=== PATIENT | female | born 1930 | race Two or more races ===

== ENCOUNTER 2017-02-16 14:43 | Inpatient (IN) | payer MEDICARE, MEDICAID ==
[~2017-02-16] VITALS: Ht 149.9 cm; Wt 71.7 kg
[~2017-02-16 14:43] MED LIST: CHOL200026 PO; FERR325C PO; GLIP10TA PO; HYDR25TA4 PO; LISI-659 PO; MAGN400T26 PO; SIMV10TA6 PO; SITA100T PO; TRAM-351 PO; [UNRECOGNIZED DRUG - CODE] PO
--- NOTE | 2017-02-16 14:48 | NUR ---
AAOX1, BIB PA FROM [facility] C/O CHEST CONGESTION X 1 MONTH, WORSE LAST 2 DAYS, SPO2=92% ON RA, PLACED ON NC AT 2L/MIN NOW SPO2=99%. SKIN IS WARM AND DRY. ASSISTED TO HOSPITAL GOWN, PLACED ON MONITOR. AWAITING MD FOR EVAL.
[2017-02-16] MEDS ORDERED: IV NS 0.9% 1,000 ML BAG IV ONE ×2 (15:30)
[2017-02-16] MEDS ORDERED: AZITHROMYCIN 500 MG in IV D5W 250 ML IV ONE (15:30)
[2017-02-16] MEDS ORDERED: CEFTRIAXONE 1GM BAG (ER ONLY) 1 GM/50 ML PIGGYBACK IV ONE (15:30)
[2017-02-16] MEDS ORDERED: METF500T4 PO (15:38)
[2017-02-16] MEDS ORDERED: ACET-868 PO (15:38)
[2017-02-16] MEDS ORDERED: GLIP5TAB13 PO (15:38)
[2017-02-16] MEDS ORDERED: PANT40TA4 PO (15:38)
[2017-02-16] MEDS ORDERED: GUAI5SYR PO (15:38)
[2017-02-16] MEDS ORDERED: LOPE2CAP40 PO (15:38)
[2017-02-16] MEDS ORDERED: DIPH25CA6 PO (15:38)
[2017-02-16] MEDS ORDERED: SENN8.6T6 PO (15:38)
[2017-02-16] MEDS ORDERED: INSU100V26 SQ (15:38)
[2017-02-16] MEDS ORDERED: MULT-24 PO (15:38)
[2017-02-16] MEDS ORDERED: ONDA4TAB5 PO (15:38)
[2017-02-16] MEDS ORDERED: AMLO10TA2 PO (15:38)
[2017-02-16] MEDS ORDERED: ACET200V5 NEB (15:38)
[2017-02-16] MEDS ORDERED: ASPI-991 PO (15:38)
[2017-02-16] MEDS ORDERED: METO25TA20 PO (15:38)
[2017-02-16] MEDS ORDERED: METO-295 PO (15:38)
[2017-02-16] MEDS ORDERED: PIOG45TA PO (15:38)
[2017-02-16 15:46] LABS: BASOPHILS % (AUTO) 0.2 % (0.0-2.0); EOSINOPHILS # (AUTO) 0.1 /CMM (0.0-0.7); EOSINOPHILS % (AUTO) 0.6 % (0.0-6.0); HEMATOCRIT 36 % (33-45); LYMPHOCYTES # (AUTO) 1.7 /CMM (0.8-4.8); LYMPHOCYTES % (AUTO) 12.5 % (20.0-44.0); MEAN CORPUSCULAR HEMOGLOBIN 31 PG (26.0-33.0); MEAN CORPUSCULAR HGB CONC 34 g/dl (31.0-36.0); MEAN CORPUSCULAR VOLUME 90 fL (82-100); MONOCYTES # (AUTO) 0.7 /CMM (0.1-1.30); MONOCYTES % (AUTO) 5.3 % (2.0-12.0); NEUTROPHILS % (AUTO) 81.4 % (43.0-81.0); PLATELET COUNT (AUTO) 238 /CMM (150-450); RDW COEFFICIENT OF VARIATION 13.7 (11.5-15.0); RED BLOOD CELL COUNT(AUTO) 3.95 MIL/uL (4.0-5.2); WHITE BLOOD COUNT (AUTO) 13.5 K/uL (4.3-11.0)
--- NOTE | 2017-02-16 15:47 | NUR ---
CALLED NURSING SUP. FOR TELE BED
[2017-02-16 15:52] LABS: CALCIUM, SERUM 8.9 mg/dL (8.5-10.1); CARBON DIOXIDE 27 mmol/L (21-32); CHLORIDE 105 mmol/L (98-107); CREATININE 1.1 mg/dL (0.6-1.3); GLUCOSE 250 mg/dL (74-106); POTASSIUM 4.5 mmol/L (3.5-5.1); SODIUM SERUM 140 mmol/L (136-145); UREA NITROGEN, BLOOD 30 mg/dL (7-18)
[2017-02-16 16:00] LABS: TROPONIN I < 0.017 ng/mL (0.00-0.056)
[2017-02-16 16:01] LABS: INR 1.03 (0.87-1.13); PROTHROMBIN TIME 10.7 SECS (9.5-12.7)
--- NOTE | 2017-02-16 16:06 | NUR ---
PT GOING TO TELE 309-1 FOR PNEUMONIA
[2017-02-16 16:17] LABS: LACTIC ACID 1.6 mmol/L (0.4-2.0)
--- NOTE | 2017-02-16 16:30 | NUR ---
PATIENT IS ALLERGIC TO PCN, DR STEELE IS AWARE, ORDERED TO GIVE ROCEPHIN.
[2017-02-16] MEDS ORDERED: IV SET PRIMARY 1 EA INFUS.SET MC ONE (16:52)
[2017-02-16] MEDS ORDERED: CEFTRIAXONE 1GM BAG (ER ONLY) 50 ML IV ONE (16:52)
[2017-02-16] MEDS ORDERED: IV SET PRIMARY PUMP SET 1 EA INFUS.SET MC ONE ×2 (16:52→21:00)
[2017-02-16] MEDS ORDERED: IV NS 0.9% 2,000 ML ONE (16:52)
--- NOTE | 2017-02-16 17:35 | NUR ---
Patient is resting comfortably in bed with eyes closed. Easily aroused. VSS
--- NOTE | 2017-02-16 18:29 | NUR ---
REPORT GIVEN TO MARIIA GONZALEZ TELE 309 FOR ERNESTINE.
--- NOTE | 2017-02-16 18:39 | NUR ---
TELEVISION TECHNICIANSAMPLE SELECTOR NOTE PATIENT IS ALERT AND ORIENTED x1. INDIAN SPEAKING ONLY. FAMILY AT BEDSIDE. ON TELEMETRY WITH CARDIAC MONITORING. BEDREST ABLE TO USE BEDPAN. LEFT AC IV INTACT AND PATENT. RECEIVED REPORT FROM AMALIA SANDHU RN. WILL ENDORSE TO RUM PROCESSING OPERATOR NURSE FOR ADMISSION.
--- NOTE | 2017-02-16 19:02 | NUR ---
CAROLINE PAGED, SUPERVISOR PREP
--- NOTE | 2017-02-16 19:15 | NUR ---
RECEIVED PATIENT IN BED, RESPONSIVE TO VERBAL AND TACTILE STIMULI, ANAM O2 CANNULA AT 2LPM. ENCOURAGED DEEP BREATHING EXERCISE. FAMILY AT BEDSIDE.
--- NOTE | 2017-02-16 19:20 | NUR ---
[facility] REPAGED
--- NOTE | 2017-02-16 19:40 | NUR ---
TELE/RN RECEIVE PATIENT FROM [facility]. PATIENT IS AWAKE, FLAT AFFECT, NON VERBAL, APPEAR COMFORTABLE, NO SIGNS OF DISTRESS NOTED, MADE COMFORTABLE IN BED. UNABLE TO OBTAIN INFORMATION FROM THE PATIENT DUE TO HER MENTAL CONDITION. WILL MONITOR.
--- NOTE | 2017-02-16 19:40 | NUR ---
TRANSPORTED TO [facility] VIA ALS PROTOCOL. NO INCIDENT NOTED. DORCAS CHIANG AT BEDSIDE.
[2017-02-16 20:00] VITALS: BP 145/76
[2017-02-16] MEDS ORDERED: HYDROCODONE/APAP 5/325MG 1 EACH TABLET PO PRN (20:00)
[2017-02-16] MEDS ORDERED: LEVOFLOXACIN 500 MG /D5W 100ML 500 MG in PREMIX 1 EA IV SCH (20:00)
[2017-02-16] MEDS ORDERED: Z GUARD REMEDY 2 OZ OINT TP PRN (20:00)
[2017-02-16] MEDS ORDERED: diphenhydrAMINE HCL 25 MG CAPSULE PO PRN (20:00)
[2017-02-16] MEDS ORDERED: ACETAMINOPHEN PO PRN (20:00)
[2017-02-16] MEDS ORDERED: ZOLPIDEM TARTRATE 5 MG TABLET PO PRN (20:00)
[2017-02-16] MEDS ORDERED: TRAMADOL HCL PO PRN (20:00)
[2017-02-16] MEDS ORDERED: MAG HYDROX/AL HYDROX/SIMETH 30 ML UDC PO PRN (20:00)
[2017-02-16] MEDS ORDERED: INSULIN REGULAR, HUMAN 100 UNIT/ML 3 ML VIAL SQ PRN ×2 (20:00→22:00)
[2017-02-16] MEDS ORDERED: MAGNESIUM HYDROXIDE 30 ML UDC PO PRN (20:00)
[2017-02-16] MEDS ORDERED: [UNRECOGNIZED DRUG - OTHER] PO PRN (20:00)
[2017-02-16] MEDS ORDERED: ACETAMINOPHEN 325 MG TABLET PO PRN (20:00)
[2017-02-16] MEDS ORDERED: LOPERAMIDE HCL (2 MG CAP) 2 MG CAPSULE PO PRN (20:00)
[2017-02-16] MEDS: CEFEPIME 1 GM in IV D5W 50 ML IV SCH (21:00)
[2017-02-16] MEDS ORDERED: LEVOFLOXACIN 500 MG /D5W 100ML 100 ML IV ONE (21:46)
[2017-02-16] MEDS ORDERED: CEFEPIME 1 GM VIAL ONE (21:51)
[2017-02-16] MEDS ORDERED: INSULIN REGULAR, HUMAN 100 UNIT/ML 10 ML VIAL ONE (21:52)
[2017-02-16] MEDS: SIMVASTATIN 10 MG TABLET PO SCH (22:00)
[2017-02-16] MEDS: SENNOSIDES 8.6 MG TABLET PO SCH (22:00)
[2017-02-16] MEDS ORDERED: BLOOD SUGAR DIAGNOSTIC 1 EACH STRIP IN SCH (22:00)
[2017-02-16] MEDS ORDERED: DEXTROSE 50%-WATER 50 ML DISP.SYRIN IV PRN ×2 (22:00→23:00)
[2017-02-16] MEDS ORDERED: IV D5W 50 ML IV ONE (22:01)
[2017-02-16] MEDS ORDERED: SECONDARY IV SET 1 EA INFUS.SET MC ONE (22:02)
[2017-02-16] MEDS ORDERED: GUAIFENESIN/D-METHORPHAN HB 5 ML UDC ONE (22:26)
[2017-02-16] MEDS ORDERED: SENNOSIDES 8.6 MG TABLET ONE (22:26)
[2017-02-16] MEDS ORDERED: SIMVASTATIN 10 MG TABLET ONE (22:29)
[2017-02-16] MEDS: GUAIFENESIN/D-METHORPHAN HB 5 ML UDC PO PRN (22:32)
[2017-02-16] MEDS ORDERED: *INSULIN REGULAR(HUMULIN R)HUM 100 UNIT/ML VIAL SQ PRN (23:00)
[2017-02-16] MEDS ORDERED: ALBUTEROL FS 2.5 MG/0.5 ML VIAL.NEB NEB PRN (23:00)
[2017-02-16] MEDS ORDERED: ALBUTEROL FS 2.5 MG/0.5 ML VIAL.NEB ONE (23:41)
[2017-02-17] MEDS ORDERED: ENOXAPARIN SODIUM 40 MG/0.4 ML DISP.SYRIN SQ ONE (02:39)
[2017-02-17] MEDS: ENOXAPARIN SODIUM 40 MG/0.4 ML DISP.SYRIN SQ SCH ×2 (02:44→22:17)
[2017-02-17] MEDS ORDERED: CEFEPIME 1 GM VIAL ONE (03:42)
[2017-02-17] MEDS ORDERED: IV D5W 50 ML IV ONE (04:32)
[2017-02-17] MEDS: CEFEPIME 1 GM in IV D5W 50 ML IV SCH (04:49)
[2017-02-17] MEDS: BLOOD SUGAR DIAGNOSTIC 1 EACH STRIP VI SCH ×4 (07:15→22:37)
[2017-02-17] MEDS ORDERED: IV NS 0.9% 250 ML IV ONE (07:38)
[2017-02-17 08:00] VITALS: BP 135/77
--- NOTE | 2017-02-17 08:00 | NUR ---
MS RN NOTE PT. AWAKE, AND CONFUSE. REFUSED TO EAT BREAKFAST. CHECK BLOOD SUGAR. IT WAS 101. WILL HOLD GLUCOPHAGE AND GLUCOTROL. NS @ TKO IVF. MONITOR CLOSELY.
[2017-02-17 08:44] LABS: BASOPHILS % (AUTO) 0.4 % (0.0-2.0); EOSINOPHILS # (AUTO) 0.2 /CMM (0.0-0.7); EOSINOPHILS % (AUTO) 1.7 % (0.0-6.0); HEMATOCRIT 32 % (33-45); HEMOGLOBIN 10.5 g/dL (11.5-14.8); LYMPHOCYTES # (AUTO) 2.4 /CMM (0.8-4.8); LYMPHOCYTES % (AUTO) 19.1 % (20.0-44.0); MEAN CORPUSCULAR HEMOGLOBIN 29 PG (26.0-33.0); MEAN CORPUSCULAR HGB CONC 33 g/dl (31.0-36.0); MEAN CORPUSCULAR VOLUME 90 fL (82-100); MONOCYTES % (AUTO) 7.8 % (2.0-12.0); NEUTROPHILS # (AUTO) 8.9 /CMM (1.8-8.9); PLATELET COUNT (AUTO) 233 /CMM (150-450); RDW COEFFICIENT OF VARIATION 14.5 (11.5-15.0); RED BLOOD CELL COUNT(AUTO) 3.58 MIL/uL (4.0-5.2); WHITE BLOOD COUNT (AUTO) 12.5 K/uL (4.3-11.0)
[2017-02-17 08:58] LABS: CREATININE 0.8 mg/dL (0.6-1.3); POTASSIUM 3.6 mmol/L (3.5-5.1)
[2017-02-17] MEDS ORDERED: glipiZIDE 5 MG TABLET PO SCH (09:00)
[2017-02-17] MEDS: AMLODIPINE BESYLATE 10 MG TABLET PO SCH (09:00)
[2017-02-17] MEDS: MULTIVITAMINS,THERAPEUTIC 1 UDTAB TABLET PO SCH (09:00)
[2017-02-17] MEDS ORDERED: METFORMIN 500 MG TABLET PO SCH (09:00)
[2017-02-17] MEDS: METOCLOPRAMIDE HCL 10 MG TABLET PO SCH ×3 (09:00→16:48)
[2017-02-17] MEDS ORDERED: Medication Not On Formulary EA (Sitagliptin Phosphate (Januvia) 100 MG) PO SCH (09:00)
[2017-02-17] MEDS: ASPIRIN EC 81 MG TABLET.DR PO SCH (09:00)
[2017-02-17] MEDS: METOPROLOL TARTRATE 50 MG TABLET PO SCH ×2 (09:00→22:14)
--- NOTE | 2017-02-17 09:00 | NUR ---
PT. REFUSED TO TAKE BRY.
[2017-02-17] MEDS: PANTOPRAZOLE 40 MG TABLET.DR PO SCH (09:05)
[2017-02-17] MEDS ORDERED: PIOGLITAZONE HCL 15 MG TABLET PO SCH (09:30)
[2017-02-17] MEDS ORDERED: ACETYLCYSTEINE 10% SOLN 400 MG/4 ML VIAL NEB PRN (09:30)
[2017-02-17] MEDS ORDERED: ONDANSETRON 4 MG TAB.RAPDIS PO PRN (09:30)
[2017-02-17] MEDS ORDERED: LISINOPRIL (20MG) 20 MG TABLET PO SCH (09:30)
[2017-02-17] MEDS ORDERED: SITAGLIPTIN PHOSPHATE 50 MG TABLET PO SCH (09:30)
[2017-02-17 09:32] LABS: MAGNESIUM 1.2 mg/dL (1.8-2.4)
[2017-02-17] MEDS ORDERED: FEE PK DOSING 1 MIN EA MC ONE (09:41)
[2017-02-17] MEDS ORDERED: SECONDARY IV SET 1 EA INFUS.SET MC ONE ×2 (10:46→11:59)
--- NOTE | 2017-02-17 11:00 | NUR ---
DR. ARCHULETA AT NURSING STATION. NOTIFIED MG LEVEL (1.2). ALSO REMINDED THAT PT REFUSED TO EAT AND TAKE MEDS.
[2017-02-17] MEDS: VANCOMYCIN 0.75 GM in IV D5W 250 ML IV SCH (11:01)
[2017-02-17] MEDS: Magnesium 1GM/D5W 100ML PREMIX 100 ML IV SCH ×4 (12:02→15:56)
[2017-02-17] MEDS ORDERED: hydrALAZINE HCL 25 MG TABLET PO PRN (12:30)
[2017-02-17] MEDS: LISINOPRIL (20MG) 20 MG TABLET PO SCH (12:42)
[2017-02-17] MEDS ORDERED: TRAMADOL HCL 50 MG TABLET PO PRN (13:00)
[2017-02-17] MEDS: Potassium Chloride 10 MEQ in IV D5/0.45 NACL 1,000 ML IV PRN (13:13)
[2017-02-17 16:00] VITALS: BP 141/72
--- NOTE | 2017-02-17 17:00 | NUR ---
URINARY CATHETERIZATION DONE TO GET UA SAMPLE. CALLED LAB.
[2017-02-17] MEDS: INSULIN REGULAR, HUMAN 100 UNIT/ML 3 ML VIAL SQ PRN (17:19)
[2017-02-17] MEDS: GUAIFENESIN/D-METHORPHAN HB 5 ML UDC PO PRN (18:17)
--- NOTE | 2017-02-17 18:30 | NUR ---
CLOSING SHIFT PT. AWAKE, AND CONFUSED. COMPLAINTS OF COUGHING, TOOK A COUGH MEDS. NO SOB ON O2@ 2L VIA NC. REPOSITION FREQUENTLY. FAMILY AT THE BEDSIDE. D5 1/2 NS & K @ 75ML/HR IVF. CALL LIGHT WITHIN REACH. SIDE RAILS UP. MONITOR CLOSELY.
[2017-02-17 19:03] LABS: APPEARANCE,URINE SL CLOUDY (CLEAR); BILIRUBIN,URINE NEGATIVE (NEGATIVE); BLOOD, URINE TRACE Ery/uL (NEGATIVE); COLOR,URINE YELLOW (YELLOW); KETONES,URINE TRACE (NEGATIVE); LEUKOCYTE ESTERASE ,URINE 2+ (NEGATIVE); NITRITE, URINE NEGATIVE (NEGATIVE); PROTEIN,URINE NEGATIVE (NEGATIVE); UGLUCOSE TRACE mg/dL (NEGATIVE); UROBILINOGEN,URINE 0.2 EU/dL (0.2)
--- NOTE | 2017-02-17 19:30 | NUR ---
MSRN EASILY AWAKENED, NON VERBAL OF THIS TIME, TOTAL CARE, PRESENT IVF INFUSING WELL VIA LEFT AC. REPOSTIONED, NO SOB, 100% ON RA. TO CONTINUE.
[2017-02-17 19:35] LABS: ADD URINE CULTURE YES; BACTERIA,URINE 3+ /HPF (None Seen); WBC,URINE 21-50 /HPF (0-3)
[2017-02-17 20:00] VITALS: BP 111/53
[2017-02-17] MEDS: SENNOSIDES 8.6 MG TABLET PO SCH (21:49)
[2017-02-17] MEDS: SIMVASTATIN 10 MG TABLET PO SCH (21:49)
[2017-02-17 22:00] VITALS: BP 111/53
--- NOTE | 2017-02-17 22:00 | NUR ---
MSRN BS WAS 180, REFUSED TO TAKE ANYTHING BY MOUTH, SPITS MEDS. ABLE TO SAY SOME WORDS IN MACANESE CLEARLY. VERBAL LIMITED. HS CARE DONE REPOSITIONED.
[2017-02-17] MEDS: LEVOFLOXACIN 250 MG /D5W 50 ML 250 MG in PREMIX 1 EA IV SCH (22:16)
--- NOTE | 2017-02-18 03:18 | NUR ---
MSRN SLEEPING APPEARS COMFORTABLE. NO NEEDS FOR NOW. CONTINUED MONITORING.
--- NOTE | 2017-02-18 06:47 | NUR ---
MSRN BS 154. PRESENT IVF INFUSING WELL. KEPT COMFORTABLE, REPOSITIONED.
[2017-02-18] MEDS: BLOOD SUGAR DIAGNOSTIC 1 EACH STRIP VI SCH ×4 (07:03→21:38)
[2017-02-18 07:26] LABS: CREATININE 0.7 mg/dL (0.6-1.3); POTASSIUM 3.4 mmol/L (3.5-5.1)
[2017-02-18] MEDS: PANTOPRAZOLE 40 MG TABLET.DR PO SCH (07:30)
--- NOTE | 2017-02-18 07:33 | NUR ---
RN OPEN NOTES RECEIVED REPORT FROM CONFIGURATION MANAGEMENT SPECIALIST NURSE. PATIENT IS IN BED. ALERT AND ORIENTED X0. CONFUSED. PATIENT WAS NOT ABLE TO VERBALIZE HER NAME. PER CONFIGURATION MANAGEMENT SPECIALIST, PATIENT REFUSED ALL HER MEDS. IV SITE IS POTENT AND INTACT. PER CONFIGURATION MANAGEMENT SPECIALIST SKIN IS INTACT, WILL REASSESS PATIENT SACRAL AREA DUE TO INCONTINENCE. WILL CONTINUE TO ASSESS AND MONITOR PATIENT DURING MY SHIFT.
[2017-02-18 08:00] VITALS: BP 127/61
[2017-02-18] MEDS ORDERED: SECONDARY IV SET 1 EA INFUS.SET MC ONE (08:40)
[2017-02-18] MEDS: CEFEPIME 1 GM in IV D5W 50 ML IV SCH (08:45)
[2017-02-18] MEDS: AMLODIPINE BESYLATE 10 MG TABLET PO SCH (08:52)
[2017-02-18] MEDS: LISINOPRIL (20MG) 20 MG TABLET PO SCH (08:52)
[2017-02-18] MEDS: METOCLOPRAMIDE HCL 10 MG TABLET PO SCH ×3 (08:52→17:46)
[2017-02-18] MEDS: ASPIRIN EC 81 MG TABLET.DR PO SCH (08:52)
[2017-02-18] MEDS: METOPROLOL TARTRATE 50 MG TABLET PO SCH ×2 (08:52→21:00)
[2017-02-18] MEDS: MULTIVITAMINS,THERAPEUTIC 1 UDTAB TABLET PO SCH (08:53)
--- NOTE | 2017-02-18 09:00 | NUR ---
RN NOTES 0900 MEDS PATIENT REFUSED ALL HER 0900 MEDS. PATIENT REFUSED BREAKFAST.
[2017-02-18] MEDS: VANCOMYCIN 0.75 GM in IV D5W 250 ML IV SCH (10:34)
[2017-02-18] MEDS ORDERED: IV SET PRIMARY PUMP SET 1 EA INFUS.SET MC ONE (10:59)
[2017-02-18] MEDS ORDERED: POTASSIUM CHLORIDE 20 MEQ TAB.PRT.SR PO SCH (11:00)
--- NOTE | 2017-02-18 11:30 | NUR ---
RN NOTES K SUPP. PATIENT REFUSE ANYTHING BY MOUTH. TRIED APPLE SAUCE BUT PATIENT WOULDN'T OPEN HER MOUTH.
--- NOTE | 2017-02-18 12:14 | NUR ---
RN NOTES BLOOD SUGAR BLOOD SUGAR 194. PATIENT DIDN'T EAT BREAKFAST. PATIENT REFUSED LUNCH. HELD INSULIN FOR NOW
[2017-02-18] MEDS: Potassium Chloride 10 MEQ in IV D5/0.45 NACL 1,000 ML IV PRN (12:24)
[2017-02-18] MEDS ORDERED: IPRATROPIUM NEB FS 0.5 MG/2.5 ML AMPUL.NEB NEB PRN (13:30)
[2017-02-18] MEDS ORDERED: ALBUTEROL FS 2.5 MG/0.5 ML VIAL.NEB NEB PRN (13:30)
[2017-02-18 16:00] VITALS: BP 150/82
--- NOTE | 2017-02-18 17:30 | NUR ---
RN NOTES PATIENT WAS ABLE TO TAKE HER 1700 MEDS DUE TO AT HER BED SIDE.
[2017-02-18] MEDS: LACTOBACILLUS RHAMNOSUS GG 1 EACH CAP.SPRINK PO SCH (17:46)
[2017-02-18] MEDS: INSULIN REGULAR, HUMAN 100 UNIT/ML 3 ML VIAL SQ PRN (17:49)
--- NOTE | 2017-02-18 18:43 | NUR ---
RN CLOSING NOTES PATIENT IS IN BED. ALERT AND ORIENTED X1. PARAGUAYAN SPEAKER ONLY. IS AT BED SIDE. IV SITE IN INTACT AND POTENT, IV FLUID IS CURRENTLY RUNNING AT 75 ML/HR. PATIENT REFUSED HER BREAKFAST AND LUNCH, WELL HER PO MEDS. PATIENT ONLY TOOK HER 1700 MEDS WITH THE HELP OF HER . BED IS IN LOW POSITION, LOCKED AND 2 SIDE RAILS ARE UP FOR SAFETY. WILL ENDORSE TO PSYCH NURSE NURSE FOR CONTINUUM OF CARE
--- NOTE | 2017-02-18 19:20 | NUR ---
RN NOTES RECEIVED PT AWAKE, HOB ELEVATED, WITH O2 INHALATION VIA NC AT 2PLM AND TOLERATED WELL. PT NOTED WITH CHEST CONGESTION, RALES AND RONCHI HEARD UPON AUSCULTATION. PT ALERT AND ORIENTED X1, MOANING MOANING WHILE TALKING TO THE AT BEDSIDE. IV ACCESS ON LEFT AC PATENT AND INTACT WITH ONGOING IV FLUID INFUSING WELL. KEPT COMFORTABLE AND ATTENDED, WILL TURN AND REPOSITION PT, WILL SUCTION SECRETIONS NEEDED. WILL CONTINUE TO MONITOR PT.
[2017-02-18 20:21] VITALS: BP 134/73
--- NOTE | 2017-02-18 21:00 | NUR ---
RN NOTES LOPRESSOR 100 MGS TAB NOT GIVEN BECAUSE OF BP 108/55 AND HEART RATE OF 92. WILL CONTINUE TO MONITOR PT.
[2017-02-18] MEDS: SENNOSIDES 8.6 MG TABLET PO SCH (21:49)
[2017-02-18] MEDS: SIMVASTATIN 10 MG TABLET PO SCH (21:49)
--- NOTE | 2017-02-18 21:50 | NUR ---
RN NOTES BLOOD SUGAR CHECKED 143 MG/DL, 2 UNITS INSULIN GIVEN SQ PER SLIDING SCALE. WILL CONTINUE TO MONITOR PT.
[2017-02-18 22:00] VITALS: BP 108/55
[2017-02-18] MEDS: LEVOFLOXACIN 250 MG /D5W 50 ML 250 MG in PREMIX 1 EA IV SCH (23:33)
[2017-02-18] MEDS: ENOXAPARIN SODIUM 40 MG/0.4 ML DISP.SYRIN SQ SCH (23:35)
[2017-02-19] MEDS: Potassium Chloride 10 MEQ in IV D5/0.45 NACL 1,000 ML IV PRN (03:34)
[2017-02-19] MEDS: BLOOD SUGAR DIAGNOSTIC 1 EACH STRIP VI SCH ×2 (06:43→12:50)
[2017-02-19] MEDS: INSULIN REGULAR, HUMAN 100 UNIT/ML 3 ML VIAL SQ PRN ×2 (06:45→12:53)
[2017-02-19 06:48] LABS: BASOPHILS % (AUTO) 0.3 % (0.0-2.0); EOSINOPHILS # (AUTO) 0.2 /CMM (0.0-0.7); EOSINOPHILS % (AUTO) 2.3 % (0.0-6.0); HEMATOCRIT 31 % (33-45); HEMOGLOBIN 10.3 g/dL (11.5-14.8); LYMPHOCYTES # (AUTO) 2.2 /CMM (0.8-4.8); LYMPHOCYTES % (AUTO) 25.3 % (20.0-44.0); MEAN CORPUSCULAR HEMOGLOBIN 29 PG (26.0-33.0); MEAN CORPUSCULAR HGB CONC 33 g/dl (31.0-36.0); MEAN CORPUSCULAR VOLUME 89 fL (82-100); MONOCYTES # (AUTO) 0.8 /CMM (0.1-1.30); MONOCYTES % (AUTO) 9.3 % (2.0-12.0); NEUTROPHILS # (AUTO) 5.4 /CMM (1.8-8.9); NEUTROPHILS % (AUTO) 62.8 % (43.0-81.0); PLATELET COUNT (AUTO) 260 /CMM (150-450); RDW COEFFICIENT OF VARIATION 14.2 (11.5-15.0); RED BLOOD CELL COUNT(AUTO) 3.52 MIL/uL (4.0-5.2); WHITE BLOOD COUNT (AUTO) 8.5 K/uL (4.3-11.0)
[2017-02-19 07:02] LABS: CREATININE 0.7 mg/dL (0.6-1.3); POTASSIUM 3.4 mmol/L (3.5-5.1)
--- NOTE | 2017-02-19 07:25 | NUR ---
RN NOTES PT AWAKE, KEPT HOB ELEVATED, NO SOB, NO SIGNS OF DISTRESS AND DISCOMFORT NOTED., TOLERATING 02 INHALATION AT 2LPM VIA NC. VITAL SIGNS STABLE, AFEBRILE. NO EPISODE OF NAUSEA AND VOMITING. PT DENIES ANY PAIN AND DISCOMFORT. SUCTION SECRETIONS NEEDED, TURNED AND REPOSITION Q2 HOURS SCHEDULED. KEPT PT CLEAN AND DRY. ALL DUE MEDS GIVEN. ENDORSED TO MORNING RN FOR CONTINUITY OF CARE.
[2017-02-19] MEDS: PANTOPRAZOLE 40 MG TABLET.DR PO SCH ×2 (07:30→09:48)
[2017-02-19 08:00] VITALS: BP 138/67
[2017-02-19 09:00] VITALS: BP 138/67
[2017-02-19] MEDS: AMLODIPINE BESYLATE 10 MG TABLET PO SCH ×2 (09:00→09:50)
[2017-02-19] MEDS: METOPROLOL TARTRATE 50 MG TABLET PO SCH ×2 (09:00→09:49)
[2017-02-19] MEDS: METOCLOPRAMIDE HCL 10 MG TABLET PO SCH ×3 (09:00→12:50)
[2017-02-19] MEDS: LISINOPRIL (20MG) 20 MG TABLET PO SCH ×2 (09:00→09:50)
[2017-02-19] MEDS: ASPIRIN EC 81 MG TABLET.DR PO SCH ×2 (09:00→09:48)
[2017-02-19] MEDS: LACTOBACILLUS RHAMNOSUS GG 1 EACH CAP.SPRINK PO SCH ×2 (09:00→09:48)
[2017-02-19] MEDS: CEFEPIME 1 GM in IV D5W 50 ML IV SCH (09:48)
[2017-02-19] MEDS: MULTIVITAMINS,THERAPEUTIC 1 UDTAB TABLET PO SCH (09:50)
[2017-02-19] MEDS: GUAIFENESIN/D-METHORPHAN HB 5 ML UDC PO PRN (09:54)
[2017-02-19] MEDS ORDERED: ALBUTEROL FS 2.5 MG/3 ML VIAL.NEB NEB PRN (10:30)
[2017-02-19] MEDS: VANCOMYCIN 0.75 GM in IV D5W 250 ML IV SCH (11:44)
[2017-02-19] MEDS ORDERED: LEVO500T15 PO (13:00)
--- NOTE | 2017-02-19 16:00 | NUR ---
RN NOTES PT DISCHARGED TO [facility], REPORT GIVEN TO MARIIA GLASS, EXIT CARE DONE, DISCHARGE INSTRUCTIONS PROVIDED TO SON AND PAPERS TO AMBULANCE, ID BAND REMOVED IV REMOVED, SKIN INTACT, NO PICTURES WERE TAKEN, ALL NEEDS MET AND MEDS GIVEN ORDERED.
--- NOTE | 2017-02-19 16:00 | NUR ---
RN NOTES PT LEFT TO [facility] IN STABLE CONDITION, AOX1 GABONESE SPEAKING, ON NC 3.0 L/MIN
[2017-02-19] MEDS ORDERED: LEVOFLOXACIN (250MG) 250 MG TABLET PO SCH (23:00)
== END 2017-02-19 15:49 | DRG 177 ==
LOC: ER 14:46 → TELE 17:05 → MED 20:57
PROVIDERS: ADMIT Internal Medicine; ATTEND Internal Medicine
DX: J15.6 Pneumonia due to other Gram-negative bacteria (principal); N17.0 Acute kidney failure with tubular necrosis; R53.2 Functional quadriplegia; E46 Unspecified protein-calorie malnutrition; N10 Acute pyelonephritis; E11.9 Type 2 diabetes mellitus without complications; E78.5 Hyperlipidemia, unspecified; F03.90 Unspecified dementia, unspecified severity, without behavioral disturbance, psychotic disturbance, mood disturbance, and anxiety; I10 Essential (primary) hypertension; J20.9 Acute bronchitis, unspecified; D63.8 Anemia in other chronic diseases classified elsewhere; Z79.84 Long term (current) use of oral hypoglycemic drugs; Z86.73 Personal history of transient ischemic attack (TIA), and cerebral infarction without residual deficits; D72.829 Elevated white blood cell count, unspecified; I70.90 Unspecified atherosclerosis; Z68.31 Body mass index [BMI] 31.0-31.9, adult
CPT/HCPCS: 36415; 71010-TC; 80048-TC; 80061-TC; 81000-TC; 82962-TC; 83605-TC; 83735-TC; 84100-TC; 84484-TC; 85025-TC; 85730-TC; 87040-TC; 87081-TC; 87086-TC; 87400; 94799-TC; A4216; A4606; J0456; J0692; J0696; J1650; J1815; J1956; J3370; J3475; J3480; J3490; J7030; J7050; J7060; J8597; Z7610

== ENCOUNTER 2017-08-22 23:18 | Inpatient (IN) | payer MEDICARE, MEDICAID ==
[~2017-08-22] VITALS: Ht 165.1 cm; Wt 77.1 kg
[~2017-08-22 23:18] MED LIST changes: +ACET-868 PO; +ACET200V5 NEB; +AMLO10TA2 PO; +ASPI-991 PO; -CHOL200026 PO; +DIPH25CA6 PO; -FERR325C PO; -GLIP10TA PO; +GUAI5SYR PO; -HYDR25TA4 PO; +INSU100V26 SQ; +LEVO500T15 PO; +LOPE2CAP40 PO; -MAGN400T26 PO; +METF500T4 PO; +METO-295 PO; +METO25TA20 PO; +MULT-24 PO; +ONDA4TAB5 PO; +PANT40TA4 PO; +PIOG45TA PO; +SENN8.6T6 PO; -[UNRECOGNIZED DRUG - CODE] PO
[2017-08-22] MEDS ORDERED: IV NS 0.9% 500 ML BAG IV ONE (23:30)
--- NOTE | 2017-08-22 23:30 | NUR ---
TO BED 3 BIB PARAMEDICS C/O POOR PO INTAKE X6 MONTHS PER EMT TRANSPORT REPORT. PT NONVERBAL, NO ACUTE DISTRESS NOTED, RESP EVEN AND UNLABORED. PLACE PT ON CARDIAC MONITORING, CONTINUOUS POX. ER MD AT BEDSIDE TO EVAL PT WITH ORDERS RECEIVED. WILL CARRY OUT ORDERS.
--- NOTE | 2017-08-22 23:40 | NUR ---
STARTED SL 18G TO R HAND, BLOOD DRAWN AND SENT TO LAB.
[2017-08-23] VITALS (7 sets, daily range): BP systolic 108–146; BP diastolic 55–91
[2017-08-23 00:06] LABS: BASOPHILS # (AUTO) 0.1 /CMM (0.0-0.2); BASOPHILS % (AUTO) 0.3 % (0.0-2.0); EOSINOPHILS # (AUTO) 0.1 /CMM (0.0-0.7); EOSINOPHILS % (AUTO) 0.4 % (0.0-6.0); HEMATOCRIT 38 % (33-45); HEMOGLOBIN 12.2 g/dL (11.5-14.8); LYMPHOCYTES # (AUTO) 3.9 /CMM (0.8-4.8); LYMPHOCYTES % (AUTO) 18.4 % (20.0-44.0); MEAN CORPUSCULAR HEMOGLOBIN 28 PG (26.0-33.0); MEAN CORPUSCULAR HGB CONC 32 g/dl (31.0-36.0); MEAN CORPUSCULAR VOLUME 87 fL (82-100); MONOCYTES % (AUTO) 4.9 % (2.0-12.0); NEUTROPHILS # (AUTO) 15.9 /CMM (1.8-8.9); PLATELET COUNT (AUTO) 258 /CMM (150-450); RDW COEFFICIENT OF VARIATION 16.9 (11.5-15.0); RED BLOOD CELL COUNT(AUTO) 4.35 MIL/uL (4.0-5.2); WHITE BLOOD COUNT (AUTO) 20.9 K/uL (4.3-11.0)
[2017-08-23 00:07] LABS: CALCIUM, SERUM 9.4 mg/dL (8.5-10.1); CARBON DIOXIDE 21 mmol/L (21-32); CHLORIDE 116 mmol/L (98-107); CREATININE 2.1 mg/dL (0.6-1.3); GLUCOSE 224 mg/dL (74-106); POTASSIUM 4.4 mmol/L (3.5-5.1); SODIUM SERUM 151 mmol/L (136-145); UREA NITROGEN, BLOOD 74 mg/dL (7-18)
[2017-08-23 00:13] LABS: ALANINE AMINOTRANSFERASE 13 U/L (12-78); ALBUMIN 2.7 g/dL (3.4-5.0); ASPARTATE AMINOTRANSFERASE 18 U/L (15-37); BILIRUBIN,DIRECT 0.1 mg/dL (0.0-0.2); BILIRUBIN,TOTAL 0.4 mg/dL (0.2-1.0); TOTAL PROTEIN, SERUM 7.8 g/dL (6.4-8.2)
[2017-08-23 00:16] LABS: TROPONIN I 0.024 ng/mL (0.00-0.056)
[2017-08-23 00:18] LABS: INR 1.06 (0.87-1.13); PROTHROMBIN TIME 11.4 SECS (9.5-12.7)
[2017-08-23 00:23] LABS: ALKALINE PHOSPHATASE 84 U/L (46-116)
--- NOTE | 2017-08-23 00:27 | NUR ---
F/C 16FR INSERTED, NOTED YELLOW MILKY COLOR URINE.URINE SAMPLE COLLECTED AND SENT TO LAB.
[2017-08-23 00:30] LABS: APPEARANCE,URINE TURBID (CLEAR)
[2017-08-23 00:31] LABS: COLOR,URINE YELLOW (YELLOW)
[2017-08-23 00:33] LABS: PROTEIN,URINE 3+ mg/dl (NEGATIVE); UGLUCOSE NEGATIVE (NEGATIVE)
[2017-08-23 00:34] LABS: BILIRUBIN,URINE TRACE (NEGATIVE); BLOOD, URINE 3+ Ery/uL (NEGATIVE)
[2017-08-23 00:35] LABS: KETONES,URINE 1+ (NEGATIVE)
[2017-08-23 00:36] LABS: LEUKOCYTE ESTERASE ,URINE 3+ (NEGATIVE); NITRITE, URINE POSITIVE (NEGATIVE); UROBILINOGEN,URINE 0.2 EU/dL (0.2)
[2017-08-23 00:46] LABS: BACTERIA,URINE 3+ /HPF (None Seen); SQUAMOUS EPITHELIAL CELL,UR Moderate /HPF (None Seen); WBC,URINE 81-100 /HPF (0-3)
[2017-08-23 01:04] LABS: BAND % (MANUAL) 1 % (0.0-5.0); EOSINOPHILS % (MANUAL) 1 % (0-4); LYMPHOCYTES % (MANUAL) 20 % (16-48); MONOCYTES % (MANUAL) 2 % (0-11.0); NEUTROPHILS % (MANUAL) 76 (42-76)
[2017-08-23] MEDS ORDERED: GLUC1KIT2 IM (01:27)
[2017-08-23] MEDS ORDERED: METO100T3 PO (01:27)
[2017-08-23] MEDS ORDERED: METF10002 PO (01:27)
[2017-08-23] MEDS ORDERED: HYDR-4077 PO (01:27)
[2017-08-23] MEDS ORDERED: TRAM50TA92 PO (01:27)
[2017-08-23] MEDS ORDERED: INSU100V26 IJ (01:27)
[2017-08-23] MEDS ORDERED: ATOR10TA PO (01:27)
[2017-08-23] MEDS ORDERED: IPRA3AMP IH (01:27)
[2017-08-23] MEDS ORDERED: ASCO500T10 PO (01:27)
[2017-08-23] MEDS ORDERED: DEXT37.54 PO (01:27)
[2017-08-23] MEDS ORDERED: INSU100V10 SQ (01:27)
[2017-08-23] MEDS ORDERED: SITA100T PO (01:27)
[2017-08-23] MEDS ORDERED: PIOG45TA PO (01:27)
[2017-08-23] MEDS ORDERED: CIPROFLOXACIN IV RTU 400 MG in PREMIX 1 EA IV SCH (01:30)
--- NOTE | 2017-08-23 01:36 | NUR ---
ER SPOKE TO DR. FOX REGARDING PT ADMISSION. WILL CALL FOR REPORT.
--- NOTE | 2017-08-23 01:42 | NUR ---
F/C ENDORSED TO MARKETING PROJECT MANAGERMARIIA LONDONO FOR PLACEMENT VERIFICATION. REPORT GIVEN.
[2017-08-23] MEDS ORDERED: CIPROFLOXACIN IV RTU 200 ML IV ONE (01:44)
[2017-08-23] MEDS ORDERED: MEROPENEM 500 MG in IV NS 0.9% 50 ML IV SCH (02:00)
[2017-08-23] MEDS ORDERED: ACETAMINOPHEN 650 MG/SUPP.RECT RC PRN (02:00)
[2017-08-23] MEDS ORDERED: ONDANSETRON HCL/PF 4 MG/2 ML VIAL IVP PRN (02:00)
[2017-08-23] MEDS ORDERED: MORPHINE SULFATE INJ 2 MG/ML DISP.SYRIN IV PRN (02:00)
--- NOTE | 2017-08-23 02:00 | NUR ---
RN ADMITTING NOTES Pt ARRIVED TO FLOOR VIA GURNEY. ON TELE. Pt IS AWAKE. NON-VERBAL. IV ACCESS ON R HAND #18G. ROBLERO CATHETER IN PLACE, DRAINING VERY LITTLE. ON DIAPER. NO S/S OF ACUTE DISTRESS OR SEVERE SOB NOTED. SAFETY MEASURES IN PLACE. BED LOW, LOCKED, HOB ELEVATED, SIDE RAILS UP, CALL LIGHT AND BEDSIDE TABLE WITHIN REACH. WILL CONTINUE TO MONITOR Pt THROUGHOUT THE NIGHT FOR SAFETY.
[2017-08-23] MEDS ORDERED: MEROPENEM 500 MG VIAL IV ONE (05:04)
[2017-08-23] MEDS: IV D5/0.45 NACL 1,000 ML IV PRN ×2 (05:08→23:44)
--- NOTE | 2017-08-23 06:55 | NUR ---
RN CLOSING NOTES NO SIGNIFICANT CHANGES IN Pt's CONDITION. ALL NEEDS MET AND ATTENDED TO. SAFETY MEASURES IN PLACE. BED LOW, LOCKED, HOB ELEVATED, SIDE RAILS UP, CALL LIGHT WITHIN REACH. WILL ENDORSE TO DAYSHIFT RN FOR Pt's ERNESTINE.
--- NOTE | 2017-08-23 07:30 | NUR ---
TRAVEL OT AM NOTES PT IN BED, AWAKE. NON-VERBAL. FLAT AFFECT, ON 2L O2 NC, NAD NO SOB, RESPIRATION UNLABORED, TELEMETRY READS SR HR 89. NO SIGNS OF PAIN OR GRIMACING, IV ACCESS ON R HAND #18G WITH D5 1/2 NS AT 70 ML/HR. INFUSING WELL, SITE CLEAR. ROBLEOR CATHETER IN PLACE, DRAINING VERY LITTLE. SAFETY MEASURES IN PLACE. BED LOW, LOCKED, HOB ELEVATED, SIDE RAILS UP, CALL LIGHT AND BEDSIDE TABLE WITHIN REACH. WILL TURN AND REPOSITIO Q 2 HOURS. WILL CONTINUE TO MONITOR.
[2017-08-23 08:27] LABS: ALANINE AMINOTRANSFERASE 13 U/L (12-78); ALBUMIN 2.5 g/dL (3.4-5.0); ALKALINE PHOSPHATASE 81 U/L (46-116); ASPARTATE AMINOTRANSFERASE 18 U/L (15-37); BASOPHILS % (AUTO) 0.2 % (0.0-2.0); BILIRUBIN,TOTAL 0.3 mg/dL (0.2-1.0); CALCIUM, SERUM 8.9 mg/dL (8.5-10.1); CARBON DIOXIDE 24 mmol/L (21-32); CHLORIDE 115 mmol/L (98-107); CREATININE 1.7 mg/dL (0.6-1.3); EOSINOPHILS # (AUTO) 0.1 /CMM (0.0-0.7); EOSINOPHILS % (AUTO) 0.4 % (0.0-6.0); GLUCOSE 347 mg/dL (74-106); HEMATOCRIT 36 % (33-45); HEMOGLOBIN 11.4 g/dL (11.5-14.8); LYMPHOCYTES # (AUTO) 3.5 /CMM (0.8-4.8); LYMPHOCYTES % (AUTO) 17.4 % (20.0-44.0); MAGNESIUM 1.6 mg/dL (1.8-2.4); MEAN CORPUSCULAR HEMOGLOBIN 28 PG (26.0-33.0); MEAN CORPUSCULAR HGB CONC 32 g/dl (31.0-36.0); MEAN CORPUSCULAR VOLUME 88 fL (82-100); MONOCYTES % (AUTO) 5.2 % (2.0-12.0); NEUTROPHILS # (AUTO) 15.4 /CMM (1.8-8.9); NEUTROPHILS % (AUTO) 76.8 % (43.0-81.0); PHOSPHORUS 3.1 mg/dL (2.5-4.9); PLATELET COUNT (AUTO) 271 /CMM (150-450); POTASSIUM 3.9 mmol/L (3.5-5.1); RED BLOOD CELL COUNT(AUTO) 4.08 MIL/uL (4.0-5.2); SODIUM SERUM 150 mmol/L (136-145); TOTAL PROTEIN, SERUM 7.1 g/dL (6.4-8.2); UREA NITROGEN, BLOOD 73 mg/dL (7-18)
[2017-08-23 08:54] LABS: BAND % (MANUAL) 2 % (0.0-5.0); LYMPHOCYTES % (MANUAL) 16 % (16-48); MONOCYTES % (MANUAL) 8 % (0-11.0); NEUTROPHILS % (MANUAL) 74 (42-76)
--- NOTE | 2017-08-23 08:57 | NUR ---
MS RN NOTES PER DR. HALL TO DC TELEMETRY
[2017-08-23] MEDS: FAMOTIDINE/PF INJ 20 MG/2 ML VIAL IV SCH ×2 (09:06→21:29)
--- NOTE | 2017-08-23 09:30 | NUR ---
MS RN NOTES ADMINISTERED DUE MEDS. SEEN BY DR. ARTIS. FOR SWALLOW EVAL.
[2017-08-23] MEDS ORDERED: VANCOMYCIN 1 GM in IV D5W 250 ML IV SCH (10:00)
[2017-08-23] MEDS ORDERED: FEE PK DOSING 1 MIN EA MC ONE (10:35)
--- NOTE | 2017-08-23 11:15 | NUR ---
MS RN NOTES STARTED VANCO IV 1X DOSE ONLY. SPEECH THERAPIST AT [facility] FOR SWALLOW EVAL - FAILED.
[2017-08-23] MEDS ORDERED: Medication Not On Formulary EA (Ipratropium/Albuterol Sulfate (Duoneb 2.5-0.5 Mg/3 Ml So IH SCH (11:30)
[2017-08-23] MEDS ORDERED: LOPERAMIDE HCL (2 MG CAP) 2 MG CAPSULE PO PRN (11:30)
[2017-08-23] MEDS ORDERED: ACETYLCYSTEINE 20% SOLN 800 MG/4 ML VIAL NEB PRN (11:30)
[2017-08-23] MEDS ORDERED: ACETAMINOPHEN 325 MG TABLET PO PRN (11:30)
[2017-08-23] MEDS ORDERED: TRAMADOL HCL 50 MG TABLET PO PRN (11:30)
[2017-08-23] MEDS ORDERED: GLUTOSE 15 G GEL..GM. PO SCH (11:30)
[2017-08-23] MEDS ORDERED: diphenhydrAMINE HCL 25 MG CAPSULE PO PRN (11:30)
[2017-08-23] MEDS ORDERED: DEXTROSE 50%-WATER 50 ML DISP.SYRIN IV PRN (11:30)
[2017-08-23] MEDS ORDERED: GUAIFENESIN/D-METHORPHAN HB 5 ML UDC PO PRN (11:30)
[2017-08-23] MEDS: BLOOD SUGAR DIAGNOSTIC 1 EACH STRIP VI SCH ×3 (11:48→21:46)
--- NOTE | 2017-08-23 11:51 | NUR ---
MS RN NOTES ACCUCHECK. BS 363 MG/DL. 12 UNITS HUM R GIVEN PER SS.
[2017-08-23] MEDS: INSULIN REGULAR, HUMAN 100 UNIT/ML 3 ML VIAL SQ PRN ×2 (12:00→16:58)
[2017-08-23] MEDS: Magnesium 1GM/D5W 100ML PREMIX 100 ML IV SCH ×2 (12:26→13:28)
--- NOTE | 2017-08-23 12:26 | NUR ---
MS RN NOTES MAGNESIUM IV BAG #1.
--- NOTE | 2017-08-23 13:05 | NUR ---
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 ALL SKIN PROTECTION MEASURES IN PLACE. DISCUSSED WITH NURSING STAFF. FIRST STEP MATTRESS ORDERED. ES SCORE CURRENTLY 9. WILL SEE PRN. Royal Brown IN AGREEMENT WITH PLAN OF CARE. Addendum: 08/23/17 at 1312 by ALINE MANZO WNDNU Amended: Links added.
[2017-08-23] MEDS ORDERED: AMIN30LI4 PO (13:13)
[2017-08-23] MEDS ORDERED: ASPI81TA2 PO (13:13)
[2017-08-23] MEDS: NYSTATIN CREAM 15 GM TUBE TP SCH ×2 (13:28→16:50)
--- NOTE | 2017-08-23 13:28 | NUR ---
MS RN NOTES MAGNESIUM IV BAG #2 STARTED.
[2017-08-23] MEDS ORDERED: IPRATROPIUM NEB FS 0.5 MG/2.5 ML AMPUL.NEB NEB PRN (13:30)
[2017-08-23] MEDS ORDERED: ALBUTEROL FS 2.5 MG/3 ML VIAL.NEB NEB PRN (13:30)
[2017-08-23] MEDS: hydrALAZINE HCL 50 MG TABLET PO SCH (16:45)
[2017-08-23] MEDS: MEROPENEM 500 MG in IV NS 0.9% 50 ML IV SCH (16:45)
[2017-08-23] MEDS: METOPROLOL TARTRATE 25 MG TABLET PO SCH (16:47)
--- NOTE | 2017-08-23 16:55 | NUR ---
MS RN NOTES STARTED MERREM IV. ACCUCHECK. BS 297 MG/DL. 9 UNITS HUM R GIVEN PER SLIDING SCALE.
[2017-08-23] MEDS: ATORVASTATIN 10 MG TABLET PO SCH (17:36)
--- NOTE | 2017-08-23 18:21 | NUR ---
MS RN AM NOTES PT IN BED, RESTING, AWAKE. NON-VERBAL. FLAT AFFECT, DANISH SPEAKING. ON 2L O2 NC, NAD NO SOB, RESPIRATION UNLABORED, NO SIGNS OF PAIN OR GRIMACING, IV ACCESS ON R HAND #18G WITH D5 1/2 NS AT 70 ML/HR. INFUSING WELL, SITE CLEAR. ROBLERO CATHETER IN PLACE, WITH 400 ML OUTPUT. SAFETY MEASURES IN PLACE. BED LOW, LOCKED, HOB ELEVATED, SIDE RAILS UP, CALL LIGHT AND BEDSIDE TABLE WITHIN REACH.TURNED AND REPOSITIONED Q 2 HOURS. ALL NEEDS MET. NO OTHER SIGNIFICANT CHANGE IN CONDITION. PATIENT SEEN BY WOUND CARE NURSE EARLIER, PHOTO OF 5TH LEFT TOE DTI TAKEN AND PLACED INSIDE CHART. OFFLOAD. PT SEEN BY DR. ORTIZ, FOR EGD WITH PEG ON SATURDAY. NPO PMN SATURDAY. OBTAIN CONSENT PLS. WILL ENDORSE TO NEXT SHIFT FOR ERNESTINE.
--- NOTE | 2017-08-23 19:30 | NUR ---
RN NOTES RECEIVED PATIENT IN BED WITH EYES CLOSED. EASILY AROUSABLE. NON-VERBAL. NO ACUTE DISTRESS NOTED. NO SIGNS OF PAIN NOTED. NO SYMPTOMS OF HYPER/HYPOGLYCEMIA. IV SITE PATENT, INTACT; IVF INFUSING ORDERED. ON LOW BED WITH BILATERAL UPPER SIDE RAILS UP. WILL CONTINUE TO MONITOR.
[2017-08-23] MEDS: *INSULIN REGULAR(HUMULIN R)HUM 100 UNIT/ML VIAL SQ PRN (21:48)
[2017-08-23] MEDS: SENNOSIDES 8.6 MG TABLET PO SCH (22:00)
[2017-08-23] MEDS ORDERED: SIMVASTATIN 10 MG TABLET PO SCH (22:00)
[2017-08-24] MEDS: MEROPENEM 500 MG in IV NS 0.9% 50 ML IV SCH ×2 (05:08→17:52)
--- NOTE | 2017-08-24 06:15 | NUR ---
RN NOTES PATIENT ASLEEP, EASILY AROUSABLE. RESPIRATIONS EVEN. NO SIGNS OF PAIN NOTED. DUE MEDS GIVEN WITH NO ASE NOTED. NEEDS ATTENDED. SAFETY PRECAUTIONS AND COMFORT MEASURES IN PLACE. WILL GIVE REPORT TO DAY SHIFT FOR CONTINUITY OF CARE.
[2017-08-24] MEDS: BLOOD SUGAR DIAGNOSTIC 1 EACH STRIP VI SCH ×4 (06:28→21:22)
[2017-08-24] MEDS ORDERED: PANTOPRAZOLE 40 MG TABLET.DR PO SCH (07:30)
[2017-08-24 07:56] LABS: CALCIUM, SERUM 8.8 mg/dL (8.5-10.1); CHLORIDE 116 mmol/L (98-107); CREATININE 1.1 mg/dL (0.6-1.3); GLUCOSE 141 mg/dL (74-106); MAGNESIUM 2.1 mg/dL (1.8-2.4); POTASSIUM 3.7 mmol/L (3.5-5.1); SODIUM SERUM 149 mmol/L (136-145); UREA NITROGEN, BLOOD 43 mg/dL (7-18)
[2017-08-24 08:00] VITALS: BP 144/69
--- NOTE | 2017-08-24 08:01 | NUR ---
ANGLE ROLL OPERATOR OPENING NOTES PT RELAXING IN BED. NO APPARENT DISTRESS NOTED. PT IS ALERT AND ORIENTED X1. PT IS NPO DID NOT PASS SWALLOW EVAL TEST. PT IS ON 2L NC. WILL CONTINUE TO MONITOR. ULTRASOUND OF THE KIDNEYS SCHEDULED FOR TODAY.
[2017-08-24 08:02] LABS: CARBON DIOXIDE 21 mmol/L (21-32)
[2017-08-24] MEDS: hydrALAZINE HCL 50 MG TABLET PO SCH ×2 (08:29→17:00)
[2017-08-24] MEDS: ASPIRIN EC 81 MG TABLET.DR PO SCH (08:30)
[2017-08-24] MEDS: AMLODIPINE BESYLATE 10 MG TABLET PO SCH (08:30)
[2017-08-24] MEDS: METOPROLOL TARTRATE 25 MG TABLET PO SCH ×2 (08:30→17:00)
[2017-08-24] MEDS: ASCORBIC ACID 500 MG TABLET PO SCH (08:31)
[2017-08-24] MEDS: MULTIVITAMINS,THERAGRAN 1 UDTAB TABLET PO SCH (08:31)
[2017-08-24] MEDS: FAMOTIDINE/PF INJ 20 MG/2 ML VIAL IV SCH ×2 (09:49→21:15)
[2017-08-24] MEDS: NYSTATIN CREAM 15 GM TUBE TP SCH ×2 (09:50→17:54)
[2017-08-24] MEDS: VANCOMYCIN 0.75 GM in IV D5W 250 ML IV SCH ×2 (09:55→21:15)
[2017-08-24] MEDS: Z GUARD REMEDY 2 OZ OINT TP PRN ×2 (09:56→12:59)
[2017-08-24] MEDS: IV D5/0.45 NACL 1,000 ML IV PRN (12:58)
[2017-08-24] MEDS: INSULIN REGULAR, HUMAN 100 UNIT/ML 3 ML VIAL SQ PRN ×2 (12:58→18:25)
--- NOTE | 2017-08-24 15:45 | NUR ---
LEFT A MESSAGE FOR DR. ARTIS OF ULTRASOUND RESULTS.
--- NOTE | 2017-08-24 15:58 | NUR ---
MS RN NOTES DR ARTIS AWARE OF KIDNEY US RESULTS. NO NEW ORDERS AT THIS TIME
[2017-08-24 16:00] VITALS: BP 124/60
--- NOTE | 2017-08-24 16:56 | NUR ---
MS RN NOTES PER DR CHANDRA BARON TO DC PROTONIX PATIENT IS ON PEPCID
[2017-08-24] MEDS: ATORVASTATIN 10 MG TABLET PO SCH (17:54)
--- NOTE | 2017-08-24 18:42 | NUR ---
MS RN NOTES PT IS STABLE. EDUCATED FAMILY ON ISOLATION PRECAUTIONS. IV FLUIDS RUNNING. PT NPO. WILL ENDORSE CARE TO STAKE SETTERSTOCKROOM ATTENDANT FOR ERNESTINE RVI. BED RAILS X3. BED LOWERED AND LOCKED.
--- NOTE | 2017-08-24 19:30 | NUR ---
RN NOTES RECEIVED PATIENT IN BED WITH EYES CLOSED; AROUSABLE TO TOUCH; SAYS WORDS IN MALAY BUT DOES NOT ANSWER QUESTIONS. NO ACUTE DISTRESS NOTED. NO SIGNS OF PAIN NOTED. NO SYMPTOMS OF HYPER/HYPOGLYCEMIA. IV SITE PATENT, INTACT; IVF INFUSING ORDERED. ROBLERO CATHETER PATENT, INTACT; DRAINING CLOUDY YELLOW URINE. CONTACT ISOLATION FOR MRSA NARES MAINTAINED. ASPIRATION PRECAUTION MAINTAINED. PATIENT NPO. WILL REPOSITION Q 2 HOURS. ON LOW BED WITH BILATERAL UPPER SIDE RAILS UP; CALL LIGHT WITHIN EASY REACH. WILL CONTINUE TO MONITOR.
[2017-08-24 20:00] VITALS: BP_SYST 118; BP_SYST 124; BP_DIAS 101; BP_DIAS 63
[2017-08-24] MEDS: MUPIROCIN OINT 2% 22 GM TUBE SCH (21:15)
[2017-08-24] MEDS: *INSULIN REGULAR(HUMULIN R)HUM 100 UNIT/ML VIAL SQ PRN (21:17)
[2017-08-24] MEDS: SENNOSIDES 8.6 MG TABLET PO SCH (22:00)
[2017-08-25] MEDS: MEROPENEM 500 MG in IV NS 0.9% 50 ML IV SCH ×2 (05:12→16:47)
[2017-08-25] MEDS: IV D5/0.45 NACL 1,000 ML IV PRN ×2 (05:18→23:42)
[2017-08-25] MEDS: BLOOD SUGAR DIAGNOSTIC 1 EACH STRIP VI SCH ×4 (06:39→23:42)
--- NOTE | 2017-08-25 07:49 | NUR ---
MS RN OPENING NOTES PT RECEIVED IN NO APPARENT DISTRESS. PT IS SLEEPING IN BED. PT IS ALERT AND ORIENTED X1. WILL CONTINUE TO MONITOR. BEDRAILS ARE UP X3. BED IS LOWERED AND LOCKED.
[2017-08-25 07:52] LABS: BASOPHILS # (AUTO) 0.1 /CMM (0.0-0.2); BASOPHILS % (AUTO) 0.5 % (0.0-2.0); EOSINOPHILS # (AUTO) 0.2 /CMM (0.0-0.7); HEMATOCRIT 39 % (33-45); HEMOGLOBIN 12.4 g/dL (11.5-14.8); LYMPHOCYTES # (AUTO) 4.3 /CMM (0.8-4.8); LYMPHOCYTES % (AUTO) 27.2 % (20.0-44.0); MEAN CORPUSCULAR HEMOGLOBIN 28 PG (26.0-33.0); MEAN CORPUSCULAR HGB CONC 32 g/dl (31.0-36.0); MEAN CORPUSCULAR VOLUME 87 fL (82-100); MONOCYTES # (AUTO) 0.5 /CMM (0.1-1.30); MONOCYTES % (AUTO) 3.1 % (2.0-12.0); NEUTROPHILS # (AUTO) 10.7 /CMM (1.8-8.9); NEUTROPHILS % (AUTO) 68.2 % (43.0-81.0); PLATELET COUNT (AUTO) 267 /CMM (150-450); RDW COEFFICIENT OF VARIATION 16.6 (11.5-15.0); RED BLOOD CELL COUNT(AUTO) 4.45 MIL/uL (4.0-5.2); WHITE BLOOD COUNT (AUTO) 15.7 K/uL (4.3-11.0)
[2017-08-25 08:26] LABS: CALCIUM, SERUM 8.5 mg/dL (8.5-10.1); CARBON DIOXIDE 22 mmol/L (21-32); CHLORIDE 114 mmol/L (98-107); CREATININE 0.8 mg/dL (0.6-1.3); GLUCOSE 102 mg/dL (74-106); POTASSIUM 3.6 mmol/L (3.5-5.1); SODIUM SERUM 147 mmol/L (136-145); UREA NITROGEN, BLOOD 25 mg/dL (7-18)
[2017-08-25 08:34] VITALS: BP 151/85
--- NOTE | 2017-08-25 08:40 | NUR ---
MS RN NOTES SPOKE TO BRODY QUIROS NP. PT'S BLOOD PRESSURE IS TRENDING UP BUT SHE IS NPO. POSSIBLE CHANGE TO IV HYDRALAZINE. BRODY IS AWARE AND NOTIFIED.
[2017-08-25] MEDS: hydrALAZINE HCL 50 MG TABLET PO SCH ×2 (08:43→17:00)
[2017-08-25] MEDS: METOPROLOL TARTRATE 25 MG TABLET PO SCH ×2 (08:43→17:00)
[2017-08-25] MEDS: ASPIRIN EC 81 MG TABLET.DR PO SCH (08:43)
[2017-08-25] MEDS: AMLODIPINE BESYLATE 10 MG TABLET PO SCH (08:44)
[2017-08-25] MEDS: MULTIVITAMINS,THERAGRAN 1 UDTAB TABLET PO SCH (08:44)
[2017-08-25] MEDS: ASCORBIC ACID 500 MG TABLET PO SCH (08:44)
[2017-08-25] MEDS ORDERED: PANTOPRAZOLE 40 MG VIAL IV SCH (09:00)
--- NOTE | 2017-08-25 09:17 | NUR ---
MS RN NOTES REMOVED PATIENT BLANKETS. COOLED ROOM AND WILL MONITOR TEMP. PATIENT STABLE- BASELINE AT THIS TIME
[2017-08-25] MEDS: FAMOTIDINE/PF INJ 20 MG/2 ML VIAL IV SCH ×2 (09:37→23:42)
[2017-08-25] MEDS: MUPIROCIN OINT 2% 22 GM TUBE SCH ×2 (09:39→23:59)
[2017-08-25] MEDS: NYSTATIN CREAM 15 GM TUBE TP SCH ×2 (09:40→16:58)
[2017-08-25] MEDS: VANCOMYCIN 0.75 GM in IV D5W 250 ML IV SCH (09:44)
--- NOTE | 2017-08-25 09:45 | NUR ---
MS RN NOTES VANCO THROUGH LEVEL 24. HOLD VANCOMYCIN.
[2017-08-25] MEDS: INSULIN REGULAR, HUMAN 100 UNIT/ML 3 ML VIAL SQ PRN ×2 (13:40→17:00)
[2017-08-25 17:00] VITALS: BP 130/80
[2017-08-25] MEDS: ATORVASTATIN 10 MG TABLET PO SCH (17:03)
--- NOTE | 2017-08-25 18:46 | NUR ---
MS RN NOTES PT IS RESTING IN BED. WILL ENDORSE CARE TO MANAGER WEALTH MANAGEMENT NURSE FOR ERNESTINE. IN NO APPARENT DISTRESS. BEDSIDE RAILS ARE UP X3. BED IS LOWERED AND LOCKED.
--- NOTE | 2017-08-25 19:35 | NUR ---
RN OPENING NOTES RECEIVED REPORT FROM KENNETH RN, JATINDER/CHI. Pt IS A/OX0, CONFUSED, MAKES GARBLED NOISES. FOUND Pt AWAKE, RESTING IN BED. NO S/S OF ACUTE DISTRESS OR SOB NOTED. ROBLERO CATHETER IN PLACE. NPO STATUS. IV ACCESS ON R HAND #18G, IVF D5 1/2NS @70ML/HR. SAFETY MEASURES IN PLACE. BED LOW, LOCKED, HOB ELEVATED, SIDE RAILS UP, CALL LIGHT AND BEDSIDE TABLE WITHIN REACH. WILL CONTINUE TO MONITOR Pt THROUGHOUT THE NIGHT FOR SAFETY.
[2017-08-25 20:00] VITALS: BP 154/73
[2017-08-25] MEDS ORDERED: VANCOMYCIN 0.75 GM in IV D5W 250 ML IV SCH (21:00)
[2017-08-25] MEDS: SENNOSIDES 8.6 MG TABLET PO SCH (22:00)
--- NOTE | 2017-08-25 22:00 | NUR ---
HS ACCUCHECK BG 160. NO INSULIN COVERAGE GIVEN AT THIS TIME DUE TO NPO STATUS AND PROCEDURE SCHEDULED FOR TOMORROW IN THE AM.
[2017-08-25] MEDS: DOXYCYCLINE 100 MG in IV D5W 100 ML IV SCH (23:41)
[2017-08-26] VITALS (7 sets, daily range): BP systolic 94–144; BP diastolic 48–93
[2017-08-26] MEDS: MEROPENEM 500 MG in IV NS 0.9% 50 ML IV SCH ×2 (06:02→16:15)
[2017-08-26] MEDS: BLOOD SUGAR DIAGNOSTIC 1 EACH STRIP VI SCH ×2 (06:07→12:31)
--- NOTE | 2017-08-26 06:15 | NUR ---
AC ACCUCHECK BG 234. NO INSULIN COVERAGE GIVEN AT THIS TIME DUE TO NPO STATUS AND SCHEDULED PROCEDURE TODAY IN THE AM.
[2017-08-26 06:33] LABS: BASOPHILS # (AUTO) 0.1 /CMM (0.0-0.2); BASOPHILS % (AUTO) 0.6 % (0.0-2.0); EOSINOPHILS # (AUTO) 0.2 /CMM (0.0-0.7); EOSINOPHILS % (AUTO) 1.9 % (0.0-6.0); HEMATOCRIT 35 % (33-45); HEMOGLOBIN 11.3 g/dL (11.5-14.8); LYMPHOCYTES # (AUTO) 4.2 /CMM (0.8-4.8); LYMPHOCYTES % (AUTO) 40.3 % (20.0-44.0); MEAN CORPUSCULAR HEMOGLOBIN 28 PG (26.0-33.0); MEAN CORPUSCULAR HGB CONC 32 g/dl (31.0-36.0); MEAN CORPUSCULAR VOLUME 87 fL (82-100); MONOCYTES # (AUTO) 0.7 /CMM (0.1-1.30); MONOCYTES % (AUTO) 6.2 % (2.0-12.0); NEUTROPHILS # (AUTO) 5.4 /CMM (1.8-8.9); PLATELET COUNT (AUTO) 289 /CMM (150-450); RDW COEFFICIENT OF VARIATION 16.4 (11.5-15.0); RED BLOOD CELL COUNT(AUTO) 3.99 MIL/uL (4.0-5.2); WHITE BLOOD COUNT (AUTO) 10.5 K/uL (4.3-11.0)
[2017-08-26 06:43] LABS: CALCIUM, SERUM 8.1 mg/dL (8.5-10.1); CARBON DIOXIDE 20 mmol/L (21-32); CHLORIDE 112 mmol/L (98-107); CREATININE 0.7 mg/dL (0.6-1.3); GLUCOSE 242 mg/dL (74-106); POTASSIUM 3.4 mmol/L (3.5-5.1); SODIUM SERUM 145 mmol/L (136-145); UREA NITROGEN, BLOOD 15 mg/dL (7-18)
--- NOTE | 2017-08-26 06:45 | NUR ---
RN CLOSING NOTES NO SIGNIFICANT CHANGES IN Pt's CONDITION. NO S/S OF ACUTE DISTRESS OR SOB NOTED DURING THE NIGHT. ALL NEEDS MET AND ATTENDED TO. SAFETY MEASURES IN PLACE. WILL ENDORSE TO DAYSHIFT RN, FOR Pt's ERNESTINE. Pt GOING INTO SURGERY IN THE AM. CONSENT FORMS SIGNED AND CHECKLIST DONE.
--- NOTE | 2017-08-26 07:30 | NUR ---
ms rn opening received report on patient however already taken down to surgery for procedure
[2017-08-26] MEDS ORDERED: CLINDAMYCIN 900 MG/6 ML VIAL ONE (07:43)
--- NOTE | 2017-08-26 08:15 | NUR ---
ms rn opening patient returned from surgical unit and stable at this time. room air 99%. g tube in place upper medial/slightly left upper abdomen. ivf attached and running as ordered. will round q2h or less per needs.
[2017-08-26] MEDS: NYSTATIN CREAM 15 GM TUBE TP SCH ×2 (08:42→16:17)
[2017-08-26] MEDS: MUPIROCIN OINT 2% 22 GM TUBE SCH ×2 (08:42→23:13)
[2017-08-26] MEDS: Z GUARD REMEDY 2 OZ OINT TP PRN ×2 (08:42→12:34)
[2017-08-26] MEDS: DOXYCYCLINE 100 MG in IV D5W 100 ML IV SCH ×2 (08:44→23:05)
[2017-08-26] MEDS: FAMOTIDINE/PF INJ 20 MG/2 ML VIAL IV SCH ×2 (08:45→23:12)
--- NOTE | 2017-08-26 09:00 | NUR ---
MS RN NOTES PER DR ORTIZ ORDERS CHANGE ALL MEDICATIONS TO GT ROUTE, CONTINUE IN 6 HOURS DIETARY REC TUBE FEEDING: GLYTROL START AT 30ML.HOUR AND INCREASE 10ML Q24H TO REACH GOAL OF 65ML.HOUR, ASPIRATION PRECAUTIONS.
[2017-08-26 09:23] LABS: MAGNESIUM 1.6 mg/dL (1.8-2.4); PHOSPHORUS 2.3 mg/dL (2.5-4.9)
[2017-08-26] MEDS ORDERED: ACETAMINOPHEN 650 MG/20.3 ML UDC GT PRN (09:30)
[2017-08-26] MEDS ORDERED: TRAMADOL HCL 50 MG TABLET GT PRN (09:30)
[2017-08-26] MEDS ORDERED: NEUTRA PHOS 1 POWD.PACKET GT ONE ×2 (10:00→16:00)
[2017-08-26] MEDS ORDERED: POTASSIUM CHLORIDE 20 MEQ POWDER PACKET GT SCH ×2 (10:00→15:00)
[2017-08-26] MEDS: hydrALAZINE HCL 50 MG TABLET GT SCH ×2 (10:00→16:15)
[2017-08-26] MEDS: METOPROLOL TARTRATE 50 MG TABLET GT SCH ×2 (10:00→16:16)
[2017-08-26] MEDS: Magnesium 1GM/D5W 100ML PREMIX 100 ML IV SCH ×2 (10:13→11:28)
[2017-08-26] MEDS: INSULIN REGULAR, HUMAN 100 UNIT/ML 3 ML VIAL SQ PRN ×2 (12:33→23:37)
[2017-08-26] MEDS ORDERED: GLYTROL 1,000 ML BAG GT PRN (14:00)
--- NOTE | 2017-08-26 14:25 | NUR ---
MS RN NOTES MESSAGE TO DR ARTIS IF OK TO DC IVF. PER OK TO DC IVF NONE NEEDED AT THIS TIME
--- NOTE | 2017-08-26 14:27 | NUR ---
MS RN NOTES DR WOODWARD AT BEDSIDE
[2017-08-26] MEDS: ASCORBIC ACID 500 MG TABLET GT SCH (14:39)
[2017-08-26] MEDS: ASPIRIN 81 MG TAB.CHEW GT SCH (14:39)
[2017-08-26] MEDS: AMLODIPINE BESYLATE 10 MG TABLET GT SCH (14:39)
[2017-08-26] MEDS: MULTIVITAMINS,THERAGRAN 1 UDTAB TABLET GT SCH (14:44)
[2017-08-26] MEDS ORDERED: DEXTROSE 50%-WATER 50 ML DISP.SYRIN IV PRN ×2 (15:00)
[2017-08-26] MEDS ORDERED: INSULIN REGULAR, HUMAN 100 UNIT/ML 3 ML VIAL SQ PRN (17:00)
[2017-08-26] MEDS ORDERED: METOPROLOL TARTRATE 50 MG TABLET GT SCH (17:00)
[2017-08-26] MEDS ORDERED: hydrALAZINE HCL 50 MG TABLET GT SCH (17:00)
[2017-08-26] MEDS ORDERED: BLOOD SUGAR DIAGNOSTIC 1 EACH STRIP IN SCH (18:00)
[2017-08-26] MEDS ORDERED: ATORVASTATIN 10 MG TABLET GT SCH (18:00)
[2017-08-26] MEDS: BLOOD SUGAR DIAGNOSTIC 1 EACH STRIP IN SCH ×2 (18:03→23:23)
--- NOTE | 2017-08-26 18:19 | NUR ---
MS RN CLOSING PATIENT STABLE. NO COMPLICATIONS. TUBE FEEDING RUNNING ORDERED NO RESIDUAL AT THIS TIME. ALL DUE MEDICATIONS GIVEN. RAILS UPX3 FOR SAFETY AND BED ALARM ON. WILL ENDORSE TO RN FOR ERNESTINE
--- NOTE | 2017-08-26 19:35 | NUR ---
RN OPENING NOTES RECEIVED REPORT FROM JATINDER COOPER RN. FOUND Pt AWAKE, IN BED. NO S/S OF ACUTE DISTRESS OR SOB NOTED. Pt IS A/OX0, CONFUSED, GARBLED SPEECH. ROBLERO CATHETER IN PLACE. GTUBE PLACEMENT SUCCESSFUL TODAY. ON GTF GLYTROL @30ML/HR. TO BE INCREASED 10ML Q24H @1400, WITH GOAL TO REACH GTF OF 65ML/HR. IV ACCESS ON LFA #22G, SL. SAFETY MEASURES IN PLACE. BED LOW, LOCKED, HOB ELEVATED, SIDE RAILS UP. WILL CONTINUE TO MONITOR Pt THROUGHOUT THE NIGHT FOR SAFETY.
[2017-08-26] MEDS ORDERED: SENNOSIDES 8.6 MG TABLET GT SCH (22:00)
--- NOTE | 2017-08-27 | NUR ---
ACCUCHECK BG 164. ADMINISTERED 3UN OF INSULIN PER SLIDING SCALE. ON GTF GLYTROL @30ML/HR.
[2017-08-27] MEDS: MEROPENEM 500 MG in IV NS 0.9% 50 ML IV SCH (05:40)
[2017-08-27] MEDS: BLOOD SUGAR DIAGNOSTIC 1 EACH STRIP IN SCH ×2 (05:40→12:49)
[2017-08-27] MEDS: INSULIN REGULAR, HUMAN 100 UNIT/ML 3 ML VIAL SQ PRN ×2 (05:50→12:54)
--- NOTE | 2017-08-27 06:00 | NUR ---
ACCUCHECK BG 209. ADMINISTERED 4UN OF INSULIN PER SLIDING SCALE.
--- NOTE | 2017-08-27 06:40 | NUR ---
RN CLOSING NOTES NO SIGNIFICANT CHANGES IN Pt's CONDITION. Pt APPEARS TO BE STABLE. NO S/S OF ACUTE DISTRESS OR SOB NOTED DURING THE NIGHT. ALL NEEDS MET AND ATTENDED TO. SAFETY MEASURES IN PLACE. WILL ENDORSE TO DAYSHIFT RN FOR Pt's ERNESTINE.
--- NOTE | 2017-08-27 07:48 | NUR ---
MED SURGE RN: INITIAL NOTE RECEIVED PT A/OX0. NOT ABLE TO NON-VERBAL BUT IN ABLE TO GARBLED SPEECH. SATING AT 97% ROOM IAR. NO DISTRESS NOTED. NO SOB NOTED. NO PAIN NOTED. FOLY CATH DRAINING AND IN PLACE. G-TUBE RUNNING GLYTROL AT 30ML/HR. SITE CLEAR AND PATENT. L FA IV WITH NO IV FLUIDS RUNNING. RESTING COMFORTABLY IN BED. CALL LIGHT WITHIN REACH.
[2017-08-27 07:53] LABS: CALCIUM, SERUM 8.1 mg/dL (8.5-10.1); CARBON DIOXIDE 19 mmol/L (21-32); CHLORIDE 111 mmol/L (98-107); CREATININE 0.7 mg/dL (0.6-1.3); GLUCOSE 220 mg/dL (74-106); MAGNESIUM 1.8 mg/dL (1.8-2.4); PHOSPHORUS 2.6 mg/dL (2.5-4.9); SODIUM SERUM 142 mmol/L (136-145); UREA NITROGEN, BLOOD 13 mg/dL (7-18)
[2017-08-27 08:00] VITALS: BP 122/71
[2017-08-27] MEDS ORDERED: MULTIVITAMINS,THERAGRAN 1 UDTAB TABLET GT SCH (09:00)
[2017-08-27] MEDS ORDERED: ASCORBIC ACID 500 MG TABLET GT SCH (09:00)
[2017-08-27] MEDS ORDERED: AMLODIPINE BESYLATE 10 MG TABLET GT SCH (09:00)
[2017-08-27] MEDS: METOPROLOL TARTRATE 50 MG TABLET GT SCH (09:27)
[2017-08-27] MEDS: ASCORBIC ACID 500 MG TABLET GT SCH (09:27)
[2017-08-27] MEDS: DOXYCYCLINE 100 MG in IV D5W 100 ML IV SCH (09:27)
[2017-08-27 09:28] VITALS: BP 122/71
[2017-08-27] MEDS: hydrALAZINE HCL 50 MG TABLET GT SCH (09:28)
[2017-08-27] MEDS: ASPIRIN 81 MG TAB.CHEW GT SCH (09:28)
[2017-08-27] MEDS: AMLODIPINE BESYLATE 10 MG TABLET GT SCH (09:28)
[2017-08-27] MEDS: FAMOTIDINE/PF INJ 20 MG/2 ML VIAL IV SCH (09:28)
[2017-08-27] MEDS: MUPIROCIN OINT 2% 22 GM TUBE SCH (09:28)
[2017-08-27] MEDS: NYSTATIN CREAM 15 GM TUBE TP SCH (09:29)
[2017-08-27] MEDS: MULTIVITAMINS,THERAGRAN 1 UDTAB TABLET GT SCH (09:32)
[2017-08-27] MEDS ORDERED: MERO1VIA IV (10:06)
[2017-08-27] MEDS ORDERED: NUT.100029 GT (10:06)
--- NOTE | 2017-08-27 14:00 | NUR ---
MED SURGE RN: DISCHARGE NOTE PT D/C TO [facility] VIA TWO EMT. PT NON VERBAL. STABLE FOR D/C VS STABLE. NO DISTRESS. NO SOB NOTED. NO PAIN NOTED. FOLY CATH DRAINING 450ML. PATENT, NO HEMATURIA NOTED. IV SITE ON L FA PATENT AND WAS NOT D/C DUE TO CONTINUING OF IV MEDIATIONS. ALL MEDICATIONS GIVEN VIA G-TUBE. SITE CLEAR AND PATENT. RUNNING 30ML/HR. NO RESIDUAL NOTED. CALLED [facility] FOR REPORT 3X AND NO ANSWER. ALL DISCHARGE INFORMATION GIVEN. SIGNED BY 2 RNS. ALL BELONGINGS ACCOUNTED FOR.
[2017-08-27] MEDS ORDERED: DOXYCYCLINE HYCLATE (100 MG) 100 MG TABLET GT SCH (21:00)
== END 2017-08-27 14:45 | DRG 871 ==
LOC: ER 23:18 → TELE 08-23 01:30 → MED 08-23 08:56
PROVIDERS: ADMIT Internal Medicine; ATTEND Internal Medicine
PROC: 0DH63UZ Insertion of Feeding Device into Stomach, Percutaneous Approach (ICD-10-PCS; principal; 2017-08-26 07:51)
DX: A41.9 Sepsis, unspecified organism (principal); E43 Unspecified severe protein-calorie malnutrition; N17.0 Acute kidney failure with tubular necrosis; E87.0 Hyperosmolality and hypernatremia; G92 Toxic encephalopathy; R53.2 Functional quadriplegia; R13.10 Dysphagia, unspecified; D68.59 Other primary thrombophilia; E11.65 Type 2 diabetes mellitus with hyperglycemia; F03.90 Unspecified dementia, unspecified severity, without behavioral disturbance, psychotic disturbance, mood disturbance, and anxiety; N12 Tubulo-interstitial nephritis, not specified as acute or chronic; N39.0 Urinary tract infection, site not specified; E86.0 Dehydration; R62.7 Adult failure to thrive; Z88.0 Allergy status to penicillin; K21.9 Gastro-esophageal reflux disease without esophagitis; E78.5 Hyperlipidemia, unspecified; M19.90 Unspecified osteoarthritis, unspecified site; Z88.8 Allergy status to other drugs, medicaments and biological substances; Z79.82 Long term (current) use of aspirin; Z79.84 Long term (current) use of oral hypoglycemic drugs; Z79.4 Long term (current) use of insulin; Z86.73 Personal history of transient ischemic attack (TIA), and cerebral infarction without residual deficits; I25.10 Atherosclerotic heart disease of native coronary artery without angina pectoris; D50.9 Iron deficiency anemia, unspecified; B96.20 Unspecified Escherichia coli [E. coli] as the cause of diseases classified elsewhere; D63.8 Anemia in other chronic diseases classified elsewhere; E86.1 Hypovolemia; I10 Essential (primary) hypertension; Z90.49 Acquired absence of other specified parts of digestive tract; L30.8 Other specified dermatitis; R23.4 Changes in skin texture; S91.105A Unspecified open wound of left lesser toe(s) without damage to nail, initial encounter; X58.XXXA Exposure to other specified factors, initial encounter; Y92.129 Unspecified place in nursing home as the place of occurrence of the external cause; R65.20 Severe sepsis without septic shock; L30.4 Erythema intertrigo
CPT/HCPCS: 36415; 43246; 71010-TC; 76770-TC; 80048-TC; 80053-TC; 80076-TC; 80202-TC; 81000-TC; 82962-TC; 83735-TC; 84100-TC; 84484-TC; 85025-TC; 85730-TC; 87081-TC; 87086-TC; 87186-TC; 92611-TC; A4216; A4606; J0744; J1815; J2185; J2270; J2704; J3370; J3475; J3490; J7030; J7050; J7060; Z7610